=== PATIENT | male | born 1970 | race Caucasian/White ===

== ENCOUNTER 2022-06-13 16:07 | Emergency (ER) | payer MEDICARE, MEDICAID, SELFPAY ==
[2022-06-13 16:09] VITALS: BP 152/91; PULSE 104; RESP 16; TEMP 36.4; O2SAT 98
[2022-06-13 16:29] LABS: Basophils Percent Auto 0.7 % (0.2-1.2); Eosinophils Percent Auto 0.7 % (0-4.4); Immature Granulocyte Absolute 0.02 K/mm3 (0.00-0.031); Immature Granulocyte Percent A 0.4 % (0-0.5); Lymphocytes Absolute Auto 1.88 K/mm3 (0.9-3.2); Lymphocytes Percent Auto 32.9 % (18.3-44.2); Mean Corpuscular HGB Conc 33.3 g/dl (32-36); Mean Corpuscular Hemoglobin 32.5 pg (26-34); Mean Corpuscular Volume 97.4 fl (80-100); Monocytes Absolute Auto 0.6 K/mm3 (0.1-0.6); Neutrophils Absolute Auto 3.2 K/mm3 (1.3-6.7); Neutrophils Percent Auto 55.3 % (45.5-73.1); Platelet Count Result 150 k/mm3 (150-375); Red Blood Count 4.31 M/mm3 (4.6-6.20); Red Cell Distribution Width 13.2 % (11.5-14.5); White Blood Count 5.7 K/mm3 (4.5-10.0)
[2022-06-13 16:40] LABS: Alanine Aminotransferase 57 U/L (6-50); Albumin Level 4.7 g/dL (3.5-5.1); Anion Gap 21 mmol/L (8-16); Aspartate Amino Transferase 69 U/L (17-59); Bilirubin,Total 0.6 mg/dL (0.2-1.3); Blood Urea Nitrogen 22 mg/dL (9-20); Calcium 9.4 mg/dL (8.4-10.2); Carbon Dioxide 21 mmol/L (22-30); Chloride 99 mmol/L (98-107); Estimated CRCL calculation 133 ml/min; Estimated Glomerular Filt Rate > 60; Glucose 320 mg/dL (65-110); Potassium 4.2 mmol/L (3.4-5.0); Sodium 141 mmol/L (137-145)
[2022-06-13 16:42] LABS: Alkaline Phosphatase < 20 U/L (38-126)
[2022-06-13 16:44] LABS: Valproic Acid 80.2 ug/mL (50-120)
[2022-06-13 17:38] VITALS: BP 167/98; PULSE 94; RESP 16; O2SAT 98
--- NOTE | 2022-06-13 18:32 | ED.GENADULT ---
HPI - General Adult General Chief complaint: Recheck/Abnormal Lab/Rx Stated complaint: High Depakote Levels Time Seen by Provider: 06/13/22 17:38 History of Present Illness HPI narrative: 52-year-old male who takes valproic acid for behavioral issues presenting the emergency department for evaluation after having an elevated VPA level collected on and was told today of his elevated level. Patient states he has had longstanding issues with night terrors but otherwise denies any acute complaints. Related Data Home Medications Medication Instructions Recorded Confirmed medroxyprogesterone 10 mg tablet 10 mg PO DAILY 02/01/21 naproxen 500 mg tablet 500 mg PO BID 02/01/21 propranolol 20 mg tablet 20 mg PO Q12H 02/01/21 risperidone 3 mg tablet 3 mg PO DAILY 02/01/21 sertraline 100 mg tablet 100 mg PO DAILY 02/01/21 sertraline 50 mg tablet 50 mg PO DAILY 02/01/21 simvastatin 10 mg tablet 10 mg PO DAILY 02/01/21 Allergies Allergy/AdvReac Type Severity Reaction Status Date / Time acetaminophen Allergy Unknown Unverified 06/23/15 17:45 benztropine Allergy Unknown Unverified 06/23/15 17:45 cephalexin Allergy Unknown Unverified 06/23/15 17:45 haloperidol Allergy Unknown Unverified 06/23/15 17:45 lithium Allergy Unknown Unverified 06/23/15 17:45 lorazepam Allergy Unknown Unverified 06/23/15 17:45 paroxetine Allergy Unknown Unverified 06/23/15 17:45 vancomycin Allergy Unknown Unverified 06/23/15 17:45 Review of Systems Review of Systems: CONSTITUTIONAL: Denies fever, chills, or sweats. EYES: Denies visual changes, redness, or discharge. ENT: Denies rhinorrhea, congestion, sore throat, or otalgia. CARDIOVASCULAR: Denies chest pain, palpitations, or edema. RESPIRATORY: Denies cough or dyspnea. GASTROINTESTINAL: Denies abdominal pain, nausea, vomiting, or diarrhea. GENITOURINARY: Denies dysuria or hematuria. SKIN: Denies rash or itching. MUSCULOSKELETAL: Denies back pain, joint pain, or myalgia. NEUROLOGIC: See HPI, night terrors and some tremors at nighttime no current tremors PSYCHIATRIC: See [facility] Social History Social History (Updated 02/01/21 @ 09:47 by Rebeca Canseco MA) Smoking status: Never smoker Alcohol intake: never Substance use: never Exam Narrative: APPEARANCE: Well appearing, no pain, no distress, well-nourished. HEAD: normocephalic, atraumatic. EYES: PERRLA/EOMI, conjunctivae clear. NOSE: Normal no drainage THROAT: Pharynx clear, no exudate. NECK: Supple. No adenopathy, no masses. RESPIRATORY: Airway patent, respirations nonlabored. Clear to auscultation bilaterally, no rales, rhonchi, wheezing. CARDIOVASCULAR: Regular rate and rhythm without murmurs rubs or gallops. ABDOMINAL: Soft, nontender, nondistended, normal bowel sounds MUSCULOSKELETAL: Moves all extremities. Strength/ROM intact, No edema, No calf tenderness. NEURO: Alert. Cranial nerves II through XII intact. Grossly intact. SKIN: Warm, dry. Normal Color PSYCHIATRIC: Normal affect/mood. Course Course Emergency Course: Patient's lab that was collected on was a free valproic acid. We do not have a stat free valproic acid lab test. Our VPA test showed his levels were then the normal range. Patient was encouraged to have close follow-up with his primary care physician. All questions and concerns were addressed. Patient was well-appearing at time of discharge. Vital Signs Vital signs: Vital Signs Temperature 97.6 F 06/13/22 16:09 Pulse Rate 104 H 06/13/22 16:09 Respiratory Rate 16 06/13/22 16:09 Blood Pressure 152/91 H 06/13/22 16:09 Pulse Oximetry 98 06/13/22 16:09 Oxygen Delivery Room Air 06/13/22 16:09 Temperature 97.6 F 06/13/22 16:09 Pulse Rate 94 06/13/22 17:38 Respiratory Rate 16 06/13/22 17:38 Blood Pressure 167/98 H 06/13/22 17:38 Pulse Oximetry 98 06/13/22 17:38 Oxygen Delivery Room Air 06/13/22 16:09 Medical Decision Making Vital Signs Vital Sig
== END 2022-06-13 19:03 | disposition home or self-care (01) ==
PROVIDERS: Emergency Provider Emergency Medicine; PCP Family Medicine
DX: R89.2 Abnormal level of other drugs, medicaments and biological substances in specimens from other organs, systems and tissues (principal); F51.4 Sleep terrors [night terrors]
CPT/HCPCS: 36415; 80053; 80164; 80165; 85025; 99283

== ENCOUNTER 2022-06-14 09:27 | Outpatient (CLI) | payer MEDICARE, MEDICAID, SELFPAY | END 2022-06-14 09:28 | disposition home or self-care (01) | LOC: ANHAUDIO 09:28 | PROVIDERS: PCP Family Medicine; Referring Provider Nurse Practitioner Family; Visit Provider Nurse Practitioner Family | DX: H90.3 Sensorineural hearing loss, bilateral (principal) | CPT/HCPCS: 92557; 92567 ==

== ENCOUNTER 2022-10-20 16:00 | Emergency (ER) | payer MEDICARE, MEDICAID, SELFPAY ==
[2022-10-20 16:13] VITALS: BP 134/90; PULSE 96; RESP 16; TEMP 36.7; O2SAT 99
[2022-10-20] MEDS: cefTRIAXone 1 GM, LIDOCAINE HCL 1% LOCAL INJ 2.1 ML IM (16:26)
[2022-10-20] MEDS: LIDOCAINE, EPINEPHRINE, TETRACAINE VISCOUS SOLN 3 ML TOPICAL (16:26)
--- NOTE | 2022-10-20 17:15 | ED.UPPEXIN ---
HPI - Extremity Injury (Upper) General Chief Complaint: Extremity Injury, Upper Stated Complaint: Left Hand/Arm Pain Time Seen by Provider: 10/20/22 16:20 Source: patient Mode of arrival: ambulatory Limitations: no limitations History of Present Illness HPI narrative: 52-year-old male presents from [facility] with complaint of redness, swelling, pain to left thumb , cuticle area. Patient reports that he bites his nails when he is nervous. No history of similar symptoms. Range of motion is intact. Denies injury. All systems reviewed and negative except as noted above. Related Data Home Medications Medication Instructions Recorded Confirmed amlodipine 2.5 mg tablet mg 10/20/22 aspirin 81 mg chewable tablet 10/20/22 divalproex 250 mg tablet,delayed mg PO 10/20/22 release duloxetine 30 mg capsule,delayed mg PO 10/20/22 release duloxetine 60 mg capsule,delayed mg PO 10/20/22 release ergocalciferol (vitamin D2) 1,250 10/20/22 mcg (50,000 unit) capsule loratadine 10 mg tablet mg 10/20/22 losartan 100 tablet 10/20/22 mg-hydrochlorothiazide 25 mg tablet medroxyprogesterone 10 mg tablet mg 10/20/22 multivitamin-iron 9 mg-folic acid tablet 10/20/22 400 mcg-calcium and minerals tablet (Therems-M) naproxen 500 mg tablet mg 10/20/22 omega-3 300 mg-dha 120 mg-epa 180 cap PO 10/20/22 mg-fish oil 1,000 mg capsule risperidone 3 mg tablet mg 10/20/22 simvastatin 10 mg tablet mg 10/20/22 trazodone 50 mg tablet mg 10/20/22 Allergies Allergy/AdvReac Type Severity Reaction Status Date / Time acetaminophen Allergy Unknown Unknown Verified 10/20/22 16:17 benztropine Allergy Unknown Unknown Verified 10/20/22 16:17 cephalexin Allergy Unknown Unknown Verified 10/20/22 16:17 haloperidol Allergy Unknown Unknown Verified 10/20/22 16:17 lithium Allergy Unknown Unknown Verified 10/20/22 16:17 lorazepam Allergy Unknown Unknown Verified 10/20/22 16:17 paroxetine Allergy Unknown Unknown Verified 10/20/22 16:17 vancomycin Allergy Unknown Unknown Verified 10/20/22 16:17 Review of Systems Review of Systems: CONSTITUTIONAL: Denies fever, chills, or sweats. EYES: Denies visual changes, redness, or discharge. ENT: Denies rhinorrhea, congestion, sore throat, or otalgia. CARDIOVASCULAR: Denies chest pain, palpitations, or edema. RESPIRATORY: Denies cough or dyspnea. GASTROINTESTINAL: Denies abdominal pain, nausea, vomiting, or diarrhea. GENITOURINARY: Denies dysuria or hematuria. SKIN: Denies rash or itching. Reports redness, pain and swelling to cuticle area of left thumb. MUSCULOSKELETAL: Denies back pain, joint pain, or myalgia. NEUROLOGIC: Denies headache, numbness, or weakness. PSYCHIATRIC: Denies anxiety or depression. All other systems reviewed are negative, except as documented in HPI. REPLACED BY [facility] Social History Social History (Updated 02/01/21 @ 09:47 by Rebeca Canseco MA) Smoking status: Never smoker Alcohol intake: never Substance use: never Comments At time of signature, agree with nursing past medical, surgical, social and family history. There is no relevant family history pertinent to the presenting complaint. Exam Narrative: GENERAL: This is a well-nourished, well-developed patient, in no apparent distress. HEAD: normocephalic, atraumatic. EYES: PERRL. Sclera clear/white. Vision is grossly intact. EARS: External ears normal NOSE: External nose normal NECK: Neck supple, non-tender without lymphadenopathy, masses or thyromegaly. CARDIOVASCULAR: Regular rate and rhythm without murmurs, gallops, or rubs. RESPIRATORY: Clear to auscultation. Breath sounds equal bilaterally. No wheezes, rales, or rhonchi. SKIN: warm, Dry, intact with no suspicious lesions or rash, good texture and turgor. Erythema, swelling, tenderness cuticle of left thumb. NEURO: awake, alert, and oriented to person, place and time. There were no obvious focal neurologic abnormalities. EXTREMITIES: No joint tende
== END 2022-10-20 17:03 | disposition home or self-care (01) ==
PROVIDERS: Emergency Provider Nurse Practitioner Family; PCP Family Medicine
DX: L03.012 Cellulitis of left finger (principal); E78.00 Pure hypercholesterolemia, unspecified; I10 Essential (primary) hypertension; K76.9 Liver disease, unspecified; F84.5 Asperger's syndrome
CPT/HCPCS: 10060; 87070; 87075; 87147; 87181; 87186; 87205; 96372; 99213; G0463; J0696

== ENCOUNTER 2023-11-02 13:23 | Emergency (ER) | payer MEDICARE, MEDICAID, SELFPAY ==
[2023-11-02 13:46] VITALS: BP 134/82; PULSE 102; RESP 16; O2SAT 100
--- NOTE | 2023-11-02 13:51 | ED.SKABFB ---
HPI - Skin/Abscess/Foreign Bdy General Chief complaint: Skin/Abscess/Foreign Body Stated complaint: fingers irritated Time Seen by Provider: 11/02/23 13:51 Source: patient and other (staff from [facility]) Mode of arrival: ambulatory Limitations: no limitations History of Present Illness HPI narrative: 53 yo M presents with staff from [facility] with c/o redness and swelling to cuticle of R thumb and little finger and also L thumb, index and ring finger for 2 to 3 days. had similar infection a year ago and needed I and D. pt reports that he has nervous habit of biting his nails and cuticles. afebrile. All systems reviewed and negative except as noted above. Related Data Home Medications Medication Instructions Recorded Confirmed amlodipine 2.5 mg tablet 2.5 mg PO DAILY 10/20/22 11/02/23 aspirin 81 mg chewable tablet 81 mg PO DAILY 10/20/22 11/02/23 divalproex 250 mg tablet,delayed 250 mg PO DAILY 10/20/22 11/02/23 release duloxetine 60 mg capsule,delayed 60 mg PO DAILY 10/20/22 11/02/23 release ergocalciferol (vitamin D2) 1,250 1,250 mcg PO DAILY 10/20/22 11/02/23 mcg (50,000 unit) capsule loratadine 10 mg tablet 10 mg PO DAILY 10/20/22 11/02/23 losartan 100 1 tablet PO DAILY 10/20/22 11/02/23 mg-hydrochlorothiazide 25 mg tablet medroxyprogesterone 10 mg tablet 10 mg PO DAILY 10/20/22 11/02/23 multivitamin-iron 9 mg-folic acid 1 tablet PO DAILY 10/20/22 11/02/23 400 mcg-calcium and minerals tablet (Therems-M) naproxen 500 mg tablet See Rx Instructions .Route .COMPLEX 10/20/22 11/02/23 omega-3 300 mg-dha 120 mg-epa 180 1 cap PO DAILY 10/20/22 11/02/23 mg-fish oil 1,000 mg capsule risperidone 3 mg tablet 3 mg PO DAILY 10/20/22 11/02/23 simvastatin 10 mg tablet 10 mg PO DAILY 10/20/22 11/02/23 trazodone 50 mg tablet 50 mg PO DAILY 10/20/22 11/02/23 calcium carbonate 200 mg calcium 200 mg PO DAILY 11/02/23 11/02/23 (500 mg) chewable tablet (Calcium Antacid) carbamide peroxide 6.5 % ear drops See Rx Instructions .Route .COMPLEX 11/02/23 11/02/23 (Ear Drops (carbamide peroxide)) fluticasone propionate 50 See Rx Instructions .Route .COMPLEX 11/02/23 11/02/23 mcg/actuation nasal spray,suspension hydrocortisone 1 % topical cream See Rx Instructions .Route .COMPLEX 11/02/23 11/02/23 metformin 1,000 mg tablet 1,000 mg PO DAILY 11/02/23 11/02/23 multivitamin-iron 9 mg-folic acid 1 tablet PO DAILY 11/02/23 11/02/23 400 mcg-calcium and minerals tablet (Therems-M) sodium chloride 0.65 % nasal spray See Rx Instructions .Route .COMPLEX 11/02/23 11/02/23 aerosol (Deep Sea Nasal) Allergies Allergy/AdvReac Type Severity Reaction Status Date / Time acetaminophen Allergy Unknown Unknown Verified 11/02/23 13:37 benztropine Allergy Unknown Unknown Verified 11/02/23 13:37 cephalexin Allergy Unknown Unknown Verified 11/02/23 13:37 haloperidol Allergy Unknown Unknown Verified 11/02/23 13:37 lithium Allergy Unknown Unknown Verified 11/02/23 13:37 lorazepam Allergy Unknown Unknown Verified 11/02/23 13:37 paroxetine Allergy Unknown Unknown Verified 11/02/23 13:37 vancomycin Allergy Unknown Unknown Verified 11/02/23 13:37 Review of Systems Review of Systems: CONSTITUTIONAL: Denies fever, chills, or sweats. EYES: Denies visual changes, redness, or discharge. ENT: Denies rhinorrhea, congestion, sore throat, or otalgia. CARDIOVASCULAR: Denies chest pain, palpitations, or edema. RESPIRATORY: Denies cough or dyspnea. GASTROINTESTINAL: Denies abdominal pain, nausea, vomiting, or diarrhea. GENITOURINARY: Denies dysuria or hematuria. SKIN: reports redness and swelling to several cuticles of both hands MUSCULOSKELETAL: Denies back pain, joint pain, or myalgia. NEUROLOGIC: Denies headache, numbness, or weakness. PSYCHIATRIC: Denies anxiety or depression. All other systems reviewed are negative, except as documented in HPI. FOR[facility]LY [facility] Social History Social History (Updated 02/01/21 @ 09:47 by Rebeca Canseco MA) Smok
== END 2023-11-02 14:07 | disposition home or self-care (01) ==
PROVIDERS: Emergency Provider Nurse Practitioner Family; PCP Family Medicine
DX: L03.011 Cellulitis of right finger (principal); L03.012 Cellulitis of left finger; E78.00 Pure hypercholesterolemia, unspecified; I10 Essential (primary) hypertension; F84.5 Asperger's syndrome; K76.9 Liver disease, unspecified; F65.4 Pedophilia
CPT/HCPCS: 99213; G0463

== ENCOUNTER 2025-03-05 08:26 | Emergency (ER) | payer MEDICARE, MEDICAID, SELFPAY ==
[2025-03-05 08:40] VITALS: BP 153/80; PULSE 103; RESP 20; TEMP 36.4; O2SAT 98
--- NOTE | 2025-03-05 08:50 | ED_ITS ---
HPI - Back Pain/Injury General Chief Complaint: Back Pain/Injury Stated Complaint: Left Leg/Back/Butt Pain Source: patient Mode of arrival: ambulatory Limitations: no limitations History of Present Illness HPI Narrative: Patient is a 54-year-old male who presents to the clinic with complaints of left-sided back pain that goes down into his left leg since yesterday. He states he was caring a case of water and has had pain ever since. He has not been taking anything over the counter. Denies any numbness or tingling. Related Data Home Medications ?Medication ?Instructions ?Recorded ?Confirmed ?Last Taken ?Type amlodipine 2.5 mg tablet 2.5 mg PO DAILY 10/20/22 11/02/23 Unknown History aspirin 81 mg chewable tablet 81 mg PO DAILY 10/20/22 11/02/23 Unknown History divalproex 250 mg tablet,delayed 250 mg PO DAILY 10/20/22 11/02/23 Unknown History release duloxetine 60 mg capsule,delayed 60 mg PO DAILY 10/20/22 11/02/23 Unknown History release ergocalciferol (vitamin D2) 1,250 1,250 mcg PO DAILY 10/20/22 11/02/23 Unknown History mcg (50,000 unit) capsule loratadine 10 mg tablet 10 mg PO DAILY 10/20/22 11/02/23 Unknown History losartan 100 1 tablet PO DAILY 10/20/22 11/02/23 Unknown History mg-hydrochlorothiazide 25 mg tablet medroxyprogesterone 10 mg tablet 10 mg PO DAILY 10/20/22 11/02/23 Unknown History multivitamin-iron 9 mg-folic acid 1 tablet PO DAILY 10/20/22 11/02/23 Unknown History 400 mcg-calcium and minerals tablet (Therems-M) naproxen 500 mg tablet See Rx Instructions .Route .COMPLEX 10/20/22 11/02/23 Unknown History omega-3 300 mg-dha 120 mg-epa 180 1 cap PO DAILY 10/20/22 11/02/23 Unknown History mg-fish oil 1,000 mg capsule risperidone 3 mg tablet 3 mg PO DAILY 10/20/22 11/02/23 Unknown History simvastatin 10 mg tablet 10 mg PO DAILY 10/20/22 11/02/23 Unknown History trazodone 50 mg tablet 50 mg PO DAILY 10/20/22 11/02/23 Unknown History calcium carbonate (Calcium Antacid) 200 mg PO DAILY 11/02/23 11/02/23 Unknown History fluticasone propionate 50 See Rx Instructions .Route .COMPLEX 11/02/23 11/02/23 Unknown History mcg/actuation nasal spray,suspension hydrocortisone 1 % topical cream See Rx Instructions .Route .COMPLEX 11/02/23 11/02/23 Unknown History metformin 1,000 mg tablet 1,000 mg PO DAILY 11/02/23 11/02/23 Unknown History sodium chloride 0.65 % nasal spray See Rx Instructions .Route .COMPLEX 11/02/23 11/02/23 Unknown History aerosol (Deep Sea Nasal) Allergies Allergy/AdvReac Type Severity Reaction Status Date / Time acetaminophen Allergy Unknown Unknown Verified 03/05/25 08:51 benztropine Allergy Unknown Unknown Verified 03/05/25 08:51 cephalexin Allergy Unknown Unknown Verified 03/05/25 08:51 haloperidol Allergy Unknown Unknown Verified 03/05/25 08:51 lithium Allergy Unknown Unknown Verified 03/05/25 08:51 lorazepam Allergy Unknown Unknown Verified 03/05/25 08:51 paroxetine Allergy Unknown Unknown Verified 03/05/25 08:51 vancomycin Allergy Unknown Unknown Verified 03/05/25 08:51 Review of Systems Review of Systems: CONSTITUTIONAL: Denies body aches, fever, chills EYES: Denies visual changes ENT: Denies rhinorrhea, congestion CARDIOVASCULAR: Denies chest pain, palpitations, or edema. RESPIRATORY: Denies cough or dyspnea. SKIN: Denies rash, itching, or wounds. MUSCULOSKELETAL: Reports back pain. Denies joint pain, or myalgia. NEUROLOGIC: Denies headache, numbness, tingling, or weakness. All systems reviewed & are unremarkable except as noted in HPI and below PMFSH Social History Social History (Updated 02/01/21 @ 09:47 by Rebeca Canseco MA) Smoking status: Never smoker Alcohol intake: never Substance use: never Comments At time of signature, I have reviewed and agree with nursing past medical, surgical, social and family history unless otherwise noted. Please see nursing chart for further information. There is no relevant family history pertinent to the presenting complaint. Exam Narrative: MUSCULOSKELETAL EXAM GENERAL: Well-appearing, well-nourished, and in no acute distress. HEAD: Normocephalic, atraumatic. NECK: Supple. CHEST: Speaks in full sentences. No respiratory distress. HEART: Regular rate and rhythm. Normal and equal peripheral pulses. EXTREMITIES: Left sided lumbar pain paraspinal with palpation. Normal sensation, normal range of motion, but endorses pain with movement. No edema or ecchymosis, No open wounds, skin tenting, or obvious deformity; alignment normal, BLE's pulses palpable and equal bilaterally, skin warm, dry, pink. Capillary refill less than 3 seconds. Distal sensation intact. SKIN: Warm, dry, no rash. NEURO: Alert and oriented x3. PSYCH: Normal mood and affect Course Course Level of Care: Express Care Visit Vital Signs Vital signs: Vital Signs Temperature 97.6 F 03/05/25 08:40 Pulse Rate 103 H 03/05/25 08:40 Respiratory Rate 20 03/05/25 08:40 Blood Pressure 153/80 H 03/05/25 08:40 Pulse Oximetry 98 03/05/25 08:40 Oxygen Delivery Room Air 03/05/25 08:40 Temperature 97.6 F 03/05/25 08:40 Pulse Rate 103 H 03/05/25 08:40 Respiratory Rate 20 03/05/25 08:40 Blood Pressure 153/80 H 03/05/25 08:40 Pulse Oximetry 98 03/05/25 08:40 Oxygen Delivery Room Air 03/05/25 08:40 Reviewed. MDM - Back Pain/Injury MDM Narrative Medical decision making narrative: Discussed physical exam findings. Steroid for inflammation. Baclofen given for muscle strain. Advised supportive measures and signs/symptoms to go to the ER. Pt is appropriate for outpatient treatment and follow up. Differential Diagnosis Differential diagnosis: Likely lumbar radiculopathy, sciatica, strain of lumbar region, renal colic and pyelonephritis Critical Care Time Critical Care Time Critical Care Time: No Discharge Plan Discharge Clinical Impression: Back pain Qualifiers: Back pain location: low back pain Chronicity: acute Back pain laterality: left Sciatica presence: with sciatica Sciatica laterality: sciatica of left side Qu alified Code(s): M54.42 - Lumbago with sciatica, left side Patient Disposition: Home Condition: Stable Instructions: Sciatica (ED) Additional Instructions: Rest. Avoid pushing, pulling, lifting or anything that worsens the symptoms Take prednisone as prescribed. Take baclofen as prescribed. Tylenol every 8 hours as needed Alternate ice/heat to the site. Lidocaine or salon pas pain patch or use pain cream like icy/hot or biofreeze. Baclofen can make you drowsy. Do not operate heavy machinery or drive until you know how this medication effects you. Follow up with your primary care provider as needed in 1 week Go to the ER for worsening symptoms or concerns Patient Language: Guyanese Prescriptions: New baclofen 5 mg tablet 5 mg PO BID 5 Days Qty: 10 0RF prednisone 20 mg tablet 40 mg PO DAILY 5 Days Qty: 10 0RF No Action medroxyprogesterone 10 mg tablet 10 mg PO DAILY divalproex 250 mg tablet,delayed release (DR/EC) 250 mg PO DAILY trazodone 50 mg tablet 50 mg PO DAILY simvastatin 10 mg tablet 10 mg PO DAILY amlodipine 2.5 mg tablet 2.5 mg PO DAILY risperidone 3 mg tablet 3 mg PO DAILY losartan-hydrochlorothiazide 100-25 mg tablet 1 tablet PO DAILY aspirin 81 mg tablet,chewable 81 mg PO DAILY ergocalciferol (vitamin D2) 1,250 mcg (50,000 unit) capsule 1,250 mcg PO DAILY loratadine 10 mg tablet 10 mg PO DAILY naproxen 500 mg tablet See Rx Instructions .ROUTE .COMPLEX Rx Instructions: Rx duloxetine 60 mg capsule,delayed release(DR/EC) 60 mg PO DAILY Therems-M 9 mg iron-400 mcg tablet 1 tablet PO DAILY omega [id number]-fish oil 300 mg (120 mg- 180mg)-1,000 mg capsule 1 cap PO DAILY ibuprofen 800 mg tablet 800 mg PO TID PRN (Reason: pain) Qty: 30 0RF hydrocortisone 1 % cream See Rx Instructions .ROUTE .COMPLEX Rx Instructions: Rx metformin 1,000 mg tablet 1,000 mg PO DAILY calcium carbonate [Calcium Antacid] 200 mg calcium (500 mg) tablet,chewable 200 mg PO DAILY fluticasone propionate 50 mcg/actuation spray,suspension See Rx Instructions .ROUTE .COMPLEX Rx Instructions: Rx Deep Sea Nasal 0.65 % aerosol,spray See Rx Instructions .ROUTE .COMPLEX Rx Instructions: Rx mupirocin 2 % ointment 1 applic topical BID 7 Days Qty: 15 0RF Follow-up/Referrals: Abhishek,Joyce Farrar MD [Primary Care Provider] - Time of Disposition: 09:04
== END 2025-03-05 09:17 | disposition home or self-care (01) ==
PROVIDERS: PCP Family Medicine
DX: M54.42 Lumbago with sciatica, left side (principal); Z79.82 Long term (current) use of aspirin; I10 Essential (primary) hypertension; E78.00 Pure hypercholesterolemia, unspecified; K76.9 Liver disease, unspecified
CPT/HCPCS: 99213; G0463